=== PATIENT | female | born 2000 | race Two or more races ===

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

== ENCOUNTER 2018-01-09 14:24 | Emergency (ER) | payer OTHER ==
[~2018-01-09] VITALS: Ht 152.4 cm; Wt 77.1 kg
[2018-01-09 14:29] VITALS: BP 128/86
--- NOTE | 2018-01-09 14:45 | NUR ---
PT PRESENTS TO ER C/O SWOLLEN AND ITCHY TONGUE S/P UNKNOWN ALLERGIC REACTION WHICH HAS HAPPENED BEFORE BUT "NEVER THIS BAD". RESP EVEN UNLABORED, SPEECH CLEAR, NO DIFFICULTY SWALLOWING. SKIN WARM DRY, NO RASHES NOTED. IN ER BED 10.
[2018-01-09] MEDS ORDERED: predniSONE 20 MG TABLET ONE (14:57)
[2018-01-09] MEDS ORDERED: predniSONE 20 MG TABLET PO ONE (15:00)
--- NOTE | 2018-01-09 15:20 | NUR ---
Patient discharged to home in stable condition. Written and verbal after care instructions given. Patient verbalizes understanding of instruction. RESP EVEN UNLABORED. NAD NOTED. NO DIFFICULTY SPEAKING, SWALLOWING, OR BREATHING.
== END 2018-01-09 15:20 | disposition home or self-care (01) ==
LOC: ER 14:26
DX: T78.40XA Allergy, unspecified, initial encounter (principal); Z91.030 Bee allergy status; Y92.89 Other specified places as the place of occurrence of the external cause
CPT/HCPCS: 99282; A4606; J7512; Z7610

== ENCOUNTER 2019-06-03 20:39 | Emergency (ER) | payer OTHER ==
[~2019-06-03] VITALS: Ht 152.4 cm; Wt 94.8 kg
[2019-06-03 22:04] VITALS: BP 109/76
[2019-06-03] MEDS ORDERED: KETOROLAC TROMETHAMINE INJ 60 MG/2 ML VIAL IM ONE ×3 (22:30→23:12)
[2019-06-03] MEDS ORDERED: DEXAMETHASONE SOD PHOSPHATE 10 MG/ML VIAL IM ONE (22:30)
[2019-06-03] MEDS ORDERED: DEXAMETHASONE SOD PHOSPHATE 10 MG/ML VIAL ONE ×2 (23:06→23:12)
== END 2019-06-03 23:17 | disposition home or self-care (01) ==
LOC: ER 20:41
DX: J02.9 Acute pharyngitis, unspecified (principal); Z91.030 Bee allergy status
CPT/HCPCS: 96372 ×2; 99283; J1100; J1885

== ENCOUNTER 2019-06-13 11:58 | Emergency (ER) | payer OTHER ==
[~2019-06-13] VITALS: Ht 152.4 cm; Wt 95.3 kg
[2019-06-13 12:04] VITALS: BP 133/80
--- NOTE | 2019-06-13 12:08 | NUR ---
JEANMARIE WILDE AT BEDSIDE FOR EVAL.
--- NOTE | 2019-06-13 12:20 | NUR ---
NEWSPAPER COLUMNIST AT BEDSIDE FOR XRAY.
--- NOTE | 2019-06-13 13:04 | NUR ---
Patient discharged to home in stable condition. Written and verbal after care instructions given. Patient verbalizes understanding of instruction.
== END 2019-06-13 13:05 | disposition home or self-care (01) ==
LOC: ER 12:04
DX: J20.9 Acute bronchitis, unspecified (principal); H11.31 Conjunctival hemorrhage, right eye; Z91.030 Bee allergy status
CPT/HCPCS: 71045-TC

== ENCOUNTER 2020-09-21 11:13 | Emergency (ER) | payer MEDICAID, OTHER ==
[~2020-09-21] VITALS: Ht 152.4 cm; Wt 102.1 kg
--- NOTE | 2020-09-21 11:13 | NUR ---
PT BIB SELF C/O MIGRAINE AND EYE PRESSURE. PT IS AAOX4, NOT IN RESPIRATORY DISTRESS, HOOKED TO GRANTS ANALYST, KEPT RESTED AND COMFORTABLE. WILL CONTINUE TO MONITOR.
--- NOTE | 2020-09-21 11:45 | NUR ---
SEEN AND EXAMINED BY
[2020-09-21] MEDS ORDERED: IV NS 0.9% 1,000 ML BAG IV ONE (12:00)
[2020-09-21 13:08] LABS: BASOPHILS % (AUTO) 0.2 % (0.0-2.0); EOSINOPHILS % (AUTO) 0.5 % (0.0-6.0); HEMATOCRIT 41 % (33-45); HEMOGLOBIN 13.6 g/dL (11.5-14.8); LYMPHOCYTES # (AUTO) 1.8 /CMM (0.8-4.8); LYMPHOCYTES % (AUTO) 17.9 % (20.0-44.0); MEAN CORPUSCULAR HGB CONC 33 g/dl (31.0-36.0); MEAN CORPUSCULAR VOLUME 88 fL (82-100); MONOCYTES # (AUTO) 0.5 /CMM (0.1-1.30); MONOCYTES % (AUTO) 5.1 % (2.0-12.0); NEUTROPHILS # (AUTO) 7.6 /CMM (1.8-8.9); NEUTROPHILS % (AUTO) 76.3 % (43.0-81.0); PLATELET COUNT (AUTO) 379 /CMM (150-450)
[2020-09-21 14:19] LABS: ALANINE AMINOTRANSFERASE 23 U/L (12-78); ALBUMIN 3.7 g/dL (3.4-5.0); ALKALINE PHOSPHATASE 62 U/L (46-116); ASPARTATE AMINOTRANSFERASE 24 U/L (15-37); BILIRUBIN,DIRECT 0.1 mg/dL (0.0-0.2); BILIRUBIN,TOTAL 0.4 mg/dL (0.2-1.0); CALCIUM, SERUM 9.5 mg/dL (8.5-10.1); CARBON DIOXIDE 18 mmol/L (21-32); CHLORIDE 102 mmol/L (98-107); CREATININE 0.5 mg/dL (0.6-1.3); GLUCOSE 84 mg/dL (74-106); POTASSIUM 4.2 mmol/L (3.5-5.1); SODIUM SERUM 138 mmol/L (136-145); UREA NITROGEN, BLOOD 12 mg/dL (7-18)
[2020-09-21 14:34] VITALS: BP 142/70
--- NOTE | 2020-09-21 14:34 | NUR ---
Patient discharged to home in stable condition. Written and verbal after care instructions given. Patient verbalizes understanding of instruction.
== END 2020-09-21 14:35 | disposition home or self-care (01) ==
LOC: ER 11:17
DX: E86.0 Dehydration (principal); G43.909 Migraine, unspecified, not intractable, without status migrainosus; Z91.030 Bee allergy status
CPT/HCPCS: 36415; 70450; 71045; 80048; 80076; 84484; 84703; 85025; 99285; J7030

== ENCOUNTER 2021-01-06 13:05 | Emergency (ER) | payer MEDICAID ==
[~2021-01-06] VITALS: Ht 152.4 cm; Wt 107.0 kg
[2021-01-06] MEDS ORDERED: ONDANSETRON HCL/PF 4 MG/2 ML VIAL ONE (13:29)
[2021-01-06] MEDS ORDERED: ONDANSETRON HCL/PF 4 MG/2 ML VIAL IVP ONE (13:30)
[2021-01-06] MEDS ORDERED: IV NS 0.9% 1,000 ML BAG IV ONE (13:30)
--- NOTE | 2021-01-06 13:46 | NUR ---
Patient came in to the er c/o fever, nausea vomiting and diarrhea started 5am. On room air, breathing evenly and unlabored. COnnected to the mobnitor and pulse ox. kept comfortable, will continue to monitor accordingly.
[2021-01-06 14:10] LABS: BASOPHILS # (AUTO) 0.1 /CMM (0.0-0.2); BASOPHILS % (AUTO) 0.9 % (0.0-2.0); EOSINOPHILS % (AUTO) 0.1 % (0.0-6.0); HEMATOCRIT 40 % (33-45); HEMOGLOBIN 13.2 g/dL (11.5-14.8); LYMPHOCYTES # (AUTO) 0.3 /CMM (0.8-4.8); MEAN CORPUSCULAR HGB CONC 33 g/dl (31.0-36.0); MEAN CORPUSCULAR VOLUME 87 fL (82-100); MONOCYTES # (AUTO) 0.3 /CMM (0.1-1.30); MONOCYTES % (AUTO) 2.8 % (2.0-12.0); NEUTROPHILS # (AUTO) 10.6 /CMM (1.8-8.9); NEUTROPHILS % (AUTO) 93.2 % (43.0-81.0); PLATELET COUNT (AUTO) 361 /CMM (150-450); RED BLOOD CELL COUNT(AUTO) 4.58 MIL/uL (4.0-5.2); WHITE BLOOD COUNT (AUTO) 11.4 K/uL (4.3-11.0)
[2021-01-06 14:13] LABS: BILIRUBIN,URINE NEGATIVE (NEGATIVE); COLOR,URINE YELLOW (YELLOW); LEUKOCYTE ESTERASE ,URINE MODERATE (NEGATIVE); NITRITE, URINE NEGATIVE (NEGATIVE); PROTEIN,URINE NEGATIVE (NEGATIVE); UGLUCOSE NEGATIVE (NEGATIVE); UROBILINOGEN,URINE 0.2 EU/dL (0.2)
[2021-01-06 14:20] LABS: CALCIUM, SERUM 9.3 mg/dL (8.5-10.1); CREATININE 0.6 mg/dL (0.6-1.3); POTASSIUM 3.9 mmol/L (3.5-5.1)
[2021-01-06 14:26] LABS: ALBUMIN 3.8 g/dL (3.4-5.0); BILIRUBIN,DIRECT 0.1 mg/dL (0.0-0.2); BILIRUBIN,TOTAL 0.4 mg/dL (0.2-1.0); TOTAL PROTEIN, SERUM 7.7 g/dL (6.4-8.2)
[2021-01-06 14:44] LABS: WBC,URINE 51-80 /HPF (0-3)
[2021-01-06 14:46] LABS: BACTERIA,URINE 2+ /HPF (None Seen); SQUAMOUS EPITHELIAL CELL,UR Many /HPF (None Seen)
[2021-01-06 14:47] LABS: MUCUS,URINE Few /LPF (None Seen); URINE AMORPHOUS PHOSPHATES Many /HPF (None Seen)
[2021-01-06] MEDS ORDERED: CEPH500C2 PO (15:28)
[2021-01-06] MEDS ORDERED: CEFTRIAXONE 1GM BAG (ER ONLY) 50 ML IV ONE ×2 (15:30→15:34)
[2021-01-06] MEDS ORDERED: FLUC150T PO (15:45)
[2021-01-06 16:09] VITALS: BP 118/77
--- NOTE | 2021-01-06 16:09 | NUR ---
Patient discharged to home in stable condition. Written and verbal after care instructions given. Patient verbalizes understanding of instruction. went home in stable condition.
--- NOTE | 2021-01-06 16:10 | NUR ---
Note ellen in ED - 01/06/21 at 1610 by MICHELLE Patient discharged to home in stable condition. Written and verbal after care instructions given. Patient verbalizes understanding of instruction.IV removed. Catheter intact and site benign. Pressure and 4x4 applied to site. No bleeding noted.
== END 2021-01-06 16:09 | disposition home or self-care (01) ==
LOC: ER 13:11
DX: N10 Acute pyelonephritis (principal); D72.829 Elevated white blood cell count, unspecified; R11.2 Nausea with vomiting, unspecified; R00.0 Tachycardia, unspecified
CPT/HCPCS: 36415; 74176; 80048; 80076; 81001; 83605; 83690; 84703; 85025; 87040 ×2; 87086; 96361; 96365; 96375; 99284; J0696; J2405; J7030

== ENCOUNTER 2022-02-06 10:10 | Emergency (ER) | payer MEDICAID ==
[~2022-02-06] VITALS: Ht 152.4 cm; Wt 99.8 kg
[~2022-02-06 10:10] MED LIST: CEPH500C2 PO; FLUC150T PO
--- NOTE | 2022-02-06 10:10 | NUR ---
PT BIBFRIEND C/O DIZZINESS AND LIGHTHEADEDNESS X2DAYS. PT IS AAOX4, NOT IN RESPIRATORY DISTRESS, HOOKED TO V/S MONITOR, KEPT RESTED AND COMFORTABLE. WILL CONTINUE TO MONITOR.
--- NOTE | 2022-02-06 10:30 | NUR ---
URINE COLLECTED AND SENT TO LAB
--- NOTE | 2022-02-06 10:31 | NUR ---
AUTO TRANSMISSION SPECIALIST AT BEDSIDE
--- NOTE | 2022-02-06 10:35 | NUR ---
IV LINE ESTABLISHED BLOOD DRAWN AND SENT TO LAB.
[2022-02-06 10:49] LABS: BASOPHILS # (AUTO) 0.1 K/uL (0.0-0.2); BASOPHILS % (AUTO) 0.7 % (0.0-2.0); EOSINOPHILS % (AUTO) 2.2 % (0.0-6.0); HEMATOCRIT 39 % (33-45); HEMOGLOBIN 13.2 g/dL (11.5-14.8); LYMPHOCYTES % (AUTO) 33.7 % (20.0-44.0); MEAN CORPUSCULAR HGB CONC 34 g/dl (31.0-36.0); MEAN CORPUSCULAR VOLUME 87 fL (82-100); MONOCYTES # (AUTO) 0.6 K/uL (0.1-1.30); MONOCYTES % (AUTO) 7.1 % (2.0-12.0); NEUTROPHILS % (AUTO) 56.3 % (43.0-81.0); PLATELET COUNT (AUTO) 377 K/uL (150-450); RED BLOOD CELL COUNT(AUTO) 4.51 MIL/uL (4.0-5.2); WHITE BLOOD COUNT (AUTO) 8.9 K/uL (4.3-11.0)
[2022-02-06 10:54] LABS: CALCIUM, SERUM 8.6 mg/dL (8.5-10.1); CARBON DIOXIDE 26 mmol/L (21-32); CHLORIDE 106 mmol/L (98-107); CREATININE 0.6 mg/dL (0.6-1.3); GLUCOSE 90 mg/dL (74-106); POTASSIUM 4.1 mmol/L (3.5-5.1); SODIUM SERUM 138 mmol/L (136-145); UREA NITROGEN, BLOOD 12 mg/dL (7-18)
[2022-02-06 11:54] VITALS: BP 120/62
--- NOTE | 2022-02-06 11:54 | NUR ---
IV removed. Catheter intact and site benign. Pressure and 4x4 applied to site. No bleeding noted.Patient discharged to home in stable condition. Written and verbal after care instructions given. Patient verbalizes understanding of instruction.
== END 2022-02-06 11:54 | disposition home or self-care (01) ==
LOC: ER 10:17
DX: R42 Dizziness and giddiness (principal); R09.81 Nasal congestion; G43.909 Migraine, unspecified, not intractable, without status migrainosus; F41.9 Anxiety disorder, unspecified; Z91.030 Bee allergy status; Z79.899 Other long term (current) drug therapy
CPT/HCPCS: 36415; 71045-TC; 80048-TC; 84484-TC; 84703-TC; 85025-TC

== ENCOUNTER 2022-05-16 20:23 | Emergency (ER) | payer MEDICAID ==
[~2022-05-16] VITALS: Ht 152.4 cm; Wt 111.1 kg
[2022-05-16 20:56] VITALS: BP 132/82
--- NOTE | 2022-05-16 20:56 | NUR ---
BIBFAMILY. L ANKLE PAIN S/P INVERSION . PT A/OX4. TOLERATING R/A WITH NO RESP DISTRESS. SAFETY MEASURES IN PLACE.
--- NOTE | 2022-05-16 20:59 | NUR ---
DR. MICHAEL LOPEZ AT PT'S BEDSIDE
--- NOTE | 2022-05-16 21:03 | NUR ---
BUSINESS DEPARTMENT CHAIR AT PT'S BEDSIDE
[2022-05-16] MEDS ORDERED: IBUP-1955 PO (22:07)
[2022-05-16] MEDS ORDERED: IBUPROFEN 600 MG TABLET ONE (22:11)
--- NOTE | 2022-05-16 22:14 | NUR ---
Patient discharged to home in stable condition. Written and verbal after care instructions given. Patient verbalizes understanding of instruction. Ambulatory with a limp but on steady gait
[2022-05-16] MEDS ORDERED: IBUPROFEN 600 MG TABLET PO ONE (22:30)
== END 2022-05-16 22:23 | disposition home or self-care (01) ==
LOC: ER 20:26
DX: S93.402A Sprain of unspecified ligament of left ankle, initial encounter (principal); G43.909 Migraine, unspecified, not intractable, without status migrainosus; F41.9 Anxiety disorder, unspecified; Z91.030 Bee allergy status; Z79.899 Other long term (current) drug therapy; X50.1XXA Overexertion from prolonged static or awkward postures, initial encounter; Y93.89 Activity, other specified; Y92.89 Other specified places as the place of occurrence of the external cause; Y99.8 Other external cause status
CPT/HCPCS: 73610-TC

== ENCOUNTER 2022-08-30 09:33 | Emergency (ER) | payer MEDICAID ==
[~2022-08-30] VITALS: Ht 152.4 cm; Wt 108.9 kg
[~2022-08-30 09:33] MED LIST changes: +IBUP-1955 PO
--- NOTE | 2022-08-30 10:30 | NUR ---
Patient discharged to home in stable condition. Written and verbal after care instructions given. Patient verbalizes understanding of instruction.
[2022-08-30 11:12] VITALS: BP 142/66
== END 2022-08-30 10:30 | disposition home or self-care (01) ==
LOC: ER 09:37
DX: N92.0 Excessive and frequent menstruation with regular cycle (principal); G43.909 Migraine, unspecified, not intractable, without status migrainosus; F41.9 Anxiety disorder, unspecified; Z91.030 Bee allergy status; Z79.899 Other long term (current) drug therapy
CPT/HCPCS: 84703-TC

== ENCOUNTER 2024-08-20 06:11 | Emergency (ER) | payer MEDICAID, OTHER ==
[~2024-08-20] VITALS: Ht 152.4 cm; Wt 103.4 kg
[2024-08-20] MEDS ORDERED: ACETAMINOPHEN ES 500 MG TABLET ONE (08:51)
[2024-08-20] MEDS: ACETAMINOPHEN ES 500 MG TABLET PO ONE (08:53)
[2024-08-20] MEDS ORDERED: AZIT250T13 PO (11:15)
[2024-08-20 11:25] VITALS: BP 106/65; TEMP 98.4; O2SAT 98
== END 2024-08-20 11:28 | disposition home or self-care (01) ==
LOC: ER 06:20
DX: R05.3 Chronic cough (principal); R50.9 Fever, unspecified; F41.9 Anxiety disorder, unspecified; Z91.030 Bee allergy status; Z20.822 Contact with and (suspected) exposure to COVID-19
CPT/HCPCS: 71045-TC; 86403-TC; 87070-TC

== ENCOUNTER 2025-06-04 16:34 | Emergency (ER) | payer OTHER ==
[~2025-06-04] VITALS: Ht 154.9 cm; Wt 95.3 kg
[~2025-06-04 16:34] MED LIST changes: +AZIT250T13 PO
[2025-06-04 17:17] VITALS: BP 123/71; TEMP 98.5
[2025-06-04] MEDS ORDERED: dexaMETHasone SOD PHOSPHATE 1 ML ONE (18:00)
[2025-06-04] MEDS: dexaMETHasone SOD PHOSPHATE 4 MG/ML VIAL IM ONE (18:03)
[2025-06-04 18:08] VITALS: O2SAT 99
[2025-06-04] MEDS ORDERED: AMOX500T2 PO (18:08)
[2025-06-04] MEDS ORDERED: FLUC200T8 PO (18:08)
== END 2025-06-04 18:09 | disposition home or self-care (01) ==
LOC: ER 16:36
DX: J02.0 Streptococcal pharyngitis (principal); Z91.030 Bee allergy status
CPT/HCPCS: 99283; 96372; J1100

== ENCOUNTER 2025-08-12 08:23 | Emergency (ER) | payer OTHER ==
[~2025-08-12] VITALS: Ht 154.9 cm; Wt 86.2 kg
[~2025-08-12 08:23] MED LIST changes: +AMOX500T2 PO; +FLUC200T8 PO
[2025-08-12] MEDS ORDERED: CEFTRIAXONE 1GM BAG (ER ONLY) 50 ML IV ONE (09:27)
[2025-08-12] MEDS ORDERED: ONDANSETRON HCL/PF 4 MG/2 ML VIAL ONE (09:27)
[2025-08-12 09:28] LABS: PLATELET COUNT (AUTO) 452 K/uL (150-450); RED BLOOD CELL COUNT(AUTO) 4.95 MIL/uL (4.0-5.2); RED CELL DISTRIBUTION WIDTH 13.9 % (11.5-15.0); WHITE BLOOD COUNT (AUTO) 9.0 K/uL (4.3-11.0)
[2025-08-12 09:31] LABS: APPEARANCE,URINE TURBID (CLEAR); BLOOD, URINE 3+ Ery/uL (NEGATIVE); LEUKOCYTE ESTERASE ,URINE 2+ (NEGATIVE); NITRITE, URINE NEGATIVE (NEGATIVE); PREGNANCY TEST URINE QUAL NEGATIVE (NEGATIVE); UGLUCOSE NEGATIVE (NEGATIVE)
[2025-08-12 09:33] LABS: CALCIUM, SERUM 9.0 mg/dL (8.5-10.1); CREATININE 0.8 mg/dL (0.6-1.3); SODIUM SERUM 141.0 mmol/L (136-145); UREA NITROGEN, BLOOD 10.0 mg/dL (7-18)
[2025-08-12 09:33] LABS: ADD URINE CULTURE YES; SQUAMOUS EPITHELIAL CELL,UR Rare /HPF (None Seen)
[2025-08-12 09:34] LABS: URINE AMORPHOUS URATE Many /HPF (None Seen)
[2025-08-12] MEDS: IV NS 0.9% 1,000 ML BAG IV ONE (09:34)
[2025-08-12] MEDS: ONDANSETRON HCL/PF 4 MG/2 ML VIAL IVP ONE (09:35)
[2025-08-12] MEDS: CEFTRIAXONE 1GM BAG (ER ONLY) 1 GM/50 ML PIGGYBACK IV ONE (09:35)
[2025-08-12 09:39] LABS: ASPARTATE AMINOTRANSFERASE 18.0 U/L (15-37); TOTAL PROTEIN, SERUM 8.0 g/dL (6.4-8.2)
[2025-08-12] MEDS ORDERED: ONDA4TAB11 PO (09:45)
[2025-08-12] MEDS ORDERED: DOXY100C2 PO (09:45)
[2025-08-12 10:39] VITALS: BP 124/72; TEMP 98; O2SAT 98
[2025-08-14 11:12] LABS: CHLAMYDIA TRACHOMATIS NAA Positive (Negative); NEISSERIA GONORRHOEAE NAA Negative (Negative)
== END 2025-08-12 10:40 | disposition home or self-care (01) ==
LOC: ER 08:30
DX: R11.2 Nausea with vomiting, unspecified (principal); F14.90 Cocaine use, unspecified, uncomplicated; R10.20 Pelvic and perineal pain unspecified side; Z91.030 Bee allergy status
CPT/HCPCS: 99284; 96365; 96375; 85025; 80048; 87086; 83690; 80076; 84703; 81001; 36415; 87210; 87491; 87591; J2405; J7030; J0696